=== PATIENT | male | born 1980 | race Caucasian/White ===

== ENCOUNTER 2019-11-25 15:27 | Emergency (ER) | payer SELFPAY ==
[2019-11-25 15:39] VITALS: BP 169/100; PULSE 86; RESP 18; TEMP 36.6; O2SAT 100
--- NOTE | 2019-11-25 15:45 | DI.RAD_ITS ---
EXAM: XR SHOULDER RT COMPLETE 2+V CLINICAL HISTORY: Fall, anterior pain. TECHNIQUE: 2D digital imaging was performed. COMPARISON: No exams were available for comparison FINDINGS: BONES: No acute fracture is present. No bony destructive lesion is seen. JOINTS: There is a dislocation of the acromioclavicular joint. The glenohumeral joint is well mainta ined. SOFT TISSUE: Normal. IMPRESSION: Right AC joint dislocation. No acute fracture. DATA REPOSITORY: RADIATION DOSE DELIVERED:
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
[2019-11-25] MEDS: HYDROcodone 5/Acetaminophen 325 TAB PO (16:02)
[2019-11-25 17:25] VITALS: BP 150/83; PULSE 78; RESP 16; O2SAT 99
--- NOTE | 2019-11-29 16:03 | DI.VRAD_ITS ---
PROCEDURE INFORMATION: Exam: XR Right Shoulder Exam date and time: 11/25/2019 4:10 PM Age: 39 years old Clinical indication: Other: Fall, anterior pain TECHNIQUE: Imaging protocol: XR Right shoulder. Views: 2 or more views. COMPARISON: No relevant prior studies available. FINDINGS: Bones/joints: A dislocation at the acromioclavicular joint. A normal glenohumeral articulation. No acute fracture Soft tissues: Normal. IMPRESSION: A dislocation involving the right acromioclavicular joint. No fracture Dictated and Authenticated by: Navid Henao MD. Ordering:DORY Irizarry MD
== END 2019-11-25 17:42 | disposition home or self-care (01) ==
PROVIDERS: Emergency Provider Emergency Medicine
DX: S43.121A Dislocation of right acromioclavicular joint, 100%-200% displacement, initial encounter (principal); V18.0XXA Pedal cycle driver injured in noncollision transport accident in nontraffic accident, initial encounter; Y93.55 Activity, bike riding
CPT/HCPCS: 23540; 73030; L3650